=== PATIENT | male | born 1960 | race Caucasian/White ===

== ENCOUNTER 2023-09-18 08:24 | Outpatient (CLI) | payer MEDICAID | END 2023-09-18 23:59 | disposition home or self-care (01) | LOC: RAD 08:24 | PROVIDERS: ATTEND Emergency Medicine Emergency Medical Services | DX: Z01.810 Encounter for preprocedural cardiovascular examination (principal); I44.4 Left anterior fascicular block; R94.31 Abnormal electrocardiogram [ECG] [EKG] | CPT/HCPCS: 93005 ==